=== PATIENT | female | born 1995 | race African-American/Black ===

== ENCOUNTER 2018-10-06 09:52 | Emergency (ER) | payer MEDICAID, OTHER ==
[~2018-10-06] VITALS: Ht 157.5 cm; Wt 52.2 kg
[2018-10-06 10:44] VITALS: BP 107/67
[2018-10-06] MEDS ORDERED: LIDOCAINE HCL 2% TOP JELLY 5ML TOP ONE (11:00)
[2018-10-06] MEDS ORDERED: LIDOCAINE VISCOUS 2% 15ML UD PO ONE (11:15)
== END 2018-10-06 11:25 | disposition home or self-care (01) ==
LOC: ER 09:52
DX: S01.512A Laceration without foreign body of oral cavity, initial encounter (principal); X58.XXXA Exposure to other specified factors, initial encounter; Y93.89 Activity, other specified; Y99.8 Other external cause status; Y92.89 Other specified places as the place of occurrence of the external cause

== ENCOUNTER 2022-05-26 10:20 | Emergency (ER) | payer MEDICAID, OTHER ==
[~2022-05-26] VITALS: Ht 160 cm; Wt 57.0 kg
[2022-05-26 11:29] VITALS: BP 112/75
[2022-05-26] MEDS ORDERED: ACETAMINOPHEN/CODEINE#3 (300/30mg) TAB PO ONE (14:45)
[2022-05-26] MEDS ORDERED: ONDANSETRON ODT 4 MG TAB PO ONE (14:45)
[2022-05-26] MEDS ORDERED: methylPREDNISolone SOD SUCC 125 MG/2 ML VL IV ONE (14:45)
[2022-05-26] MEDS ORDERED: CLINDAMYCIN 600MG IV 50 ML IV ONE (15:00)
== END 2022-05-26 15:15 | disposition left against medical advice (07) ==
LOC: ER 10:20
DX: R22.0 Localized swelling, mass and lump, head (principal); F12.10 Cannabis abuse, uncomplicated; Z53.29 Procedure and treatment not carried out because of patient's decision for other reasons